=== PATIENT | male | born 1970 | race African-American/Black ===

== ENCOUNTER 2017-10-28 06:20 | Emergency (ER) | payer SELFPAY ==
[~2017-10-28] VITALS: Ht 182.9 cm; Wt 73.5 kg
--- NOTE | 2017-10-28 06:35 | NUR ---
PT PRESENTED TO THE ER WITH A C/O FLU LIKE SYMPTOMS X 2 WKS. PT STATED THAT HE HAS MID STERNAL PAIN WITH COUGH, N/V YESTERDAY AND FEVER YESTERDAY. PT HAS CLEAR LUNG SOUNDS BILATERALLY AND IS SPEAKING IN FULL SENTENCES. RESP EVEN AND UNLABORED. PT AMBULATED TO BED #2 WITH A STEADY GAIT. PT APPEARS TO HAVE A DRY COUGH. PT IS AFEBRILE.
--- NOTE | 2017-10-28 06:38 | NUR ---
DR. SOSA IS AT THE BEDSIDE.
[2017-10-28] MEDS ORDERED: KETOROLAC TROMETHAMINE INJ 30 MG/ML VIAL ONE (06:44)
[2017-10-28] MEDS ORDERED: HYDROCODONE BIT/HOMATROPINE 5 ML UDC ONE (06:45)
[2017-10-28] MEDS ORDERED: ONDANSETRON 4 MG TAB.RAPDIS ONE (06:45)
[2017-10-28] MEDS: ONDANSETRON 4 MG TAB.RAPDIS PO ONE (06:55)
[2017-10-28] MEDS: HYDROCODONE BIT/HOMATROPINE 5 ML UDC PO ONE (06:58)
[2017-10-28] MEDS: KETOROLAC TROMETHAMINE INJ 60 MG/2 ML VIAL IM ONE (06:58)
--- NOTE | 2017-10-28 06:58 | NUR ---
medicated patient as ordered by Dr Yuan.
[2017-10-28] MEDS: BENZONATATE 100 MG CAPSULE PO PRN (07:17)
--- NOTE | 2017-10-28 08:34 | NUR ---
Patient discharged to home in stable condition. Written and verbal after care instructions given. Patient verbalizes understanding of instruction.
[2017-10-28 08:36] VITALS: BP 135/88
== END 2017-10-28 08:36 | disposition home or self-care (01) ==
LOC: ER 06:23
DX: B34.9 Viral infection, unspecified (principal); J02.9 Acute pharyngitis, unspecified; F17.200 Nicotine dependence, unspecified, uncomplicated
CPT/HCPCS: 71046; 87070; 87804 ×2; 87880; 96372; 99285; A4606; J1885; Q0162; Z7610; 86403-TC; 87400